=== PATIENT | female | born 1955 | race Caucasian/White ===

== ENCOUNTER → 2022-09-04 09:48 | Outpatient (BNVA) | payer MEDICARE, BC, SELFPAY | PROVIDERS: PCP Internal Medicine; Visit Provider Nurse Practitioner Family | DX: G43.909 Migraine, unspecified, not intractable, without status migrainosus (principal); G43.109 Migraine with aura, not intractable, without status migrainosus; R51.9 Headache, unspecified | CPT/HCPCS: 99202 ==

== ENCOUNTER 2022-10-22 08:59 | Outpatient (REF) | payer MEDICARE, BC, SELFPAY ==
--- NOTE | ~2022-10-22 | MR_ITS ---
EXAMINATION: MR BRAIN WITHOUT AND WITH CONTRAST CLINICAL INFORMATION: Migraine. New headache. Visual aura. COMPARISON: None available. TECHNIQUE: Multiplanar, multisequence MRI of the brain was obtained using a skull base protocol without and following the administration of 10 mL of Gadavist intravenous contrast. FINDINGS: No focal restricted diffusion is demonstrated to suggest acute or subacute cerebral ischemia. No evidence of acute or chronic hemorrhagic products on heme-sensitive imaging. Scattered periventricular and deep white matter T2 FLAIR hyperintensities consistent with mild underlying microangiopathy. The ventricles are normal in morphology and size. No abnormal mass effect. No midline shift. Normal appearance of the pituitary gland. Normal positioning of the cerebellar tonsils. No mass of the cerebellopontine angles. Normal appearance of the cranial nerve V, VII, and VIII nerve roots. No edema or vascular loops near the nerve root entry sites. Normal appearance of the internal auditory canals without enhancing mass lesions. No abnormal enhancement along the course of the facial nerves bilaterally. Normal appearance of the labyrinthine structures without loss of T2 signal or abnormal enhancement. Normal arterial and venous vascular flow voids are present. No abnormal intracranial contrast enhancement. Normal, homogeneous marrow signal. Mild mucosal thickening of the paranasal sinuses. No signal abnormalities within the mastoids. No demonstrated abnormalities of the orbits on limited evaluation. MR/MR head/brain wo/w con IMPRESSION: 1. No acute intracranial abnormalities. No abnormal intracranial enhancement. 2. Mild underlying microangiopathy. 3. No additional MRI abnormalities to explain the patient's symptoms.
== END 2022-10-22 09:00 | disposition home or self-care (01) ==
LOC: HO.MRI 08:59
PROVIDERS: PCP Internal Medicine; Visit Provider Nurse Practitioner Family
DX: G43.109 Migraine with aura, not intractable, without status migrainosus (principal)
CPT/HCPCS: 70553; A9585

== ENCOUNTER 2022-12-19 10:19 | Outpatient (AMB) | payer MEDICARE, BC, SELFPAY ==
--- NOTE | 2022-12-19 10:29 | A.OFFVIS_ITS ---
Intake Vital Signs 12/19/22 10:50 Height 5 ft 5 in Weight 227 lb BMI 37.8 BP 144/88 H Blood Pressure Location Rt brachial Position Sitting Pulse 67 Pulse Source Pulse Oximeter Pulse Oximetry (%) 99 Oxygen Delivery Method Room Air Intake Visit Reasons: 3m follow up Headaches - Confirmed Intake Note: Patient presents for 3 month follow up headaches. Patient states I had an MRI done, I'm here for the results. Allergies animal dander Allergy (Unknown, Verified 12/19/22 10:52) Unknown Medication List - Last Reconciled 12/19/22 by IMANI Mcallister amitriptyline 20 mg (2 x 10 mg) PO BEDTIME 30 days amoxicillin 1,000 mg PO BID atorvastatin 10 mg PO DAILY iruvwcuqb-cwplewlh-yvs-hyalur 40-10-5-3.3 mg (Sandman D&R) tabs PO cetirizine (Aller-Fred) 10 mg PO DAILY PRN CPAP As directed diltiazem HCl ER (DILT-XR) 240 mg PO DAILY levothyroxine 0 mcg PO lisinopril 10 mg PO DAILY lorazepam 1 mg PO ONCE PRN magnesium oxide 400 mg PO BEDTIME 30 days omega-3 fatty acids (Fish Oil) PO DAILY omeprazole 20 mg PO DAILY riboflavin (vitamin B2) 400 mg PO DAILY 30 days [vit E, D3 PO DAILY] HPI HPI Comments History of Present Illness Details 67-yr-old female presents for f/u visit. 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 She is being followed by oral surgeon. Since he last visit, pt reached out to us as her headaches were not improved on Mag and B2. We started pt ion Amitriptyline 10mg qhs- which she is tolerating well, but has not seen much benefit from yet. She does have some dry mouthy which she attributes to her CPAP use. She continues to have a near constant headache. 10/22/22, MR/MR head/brain wo/w con IMPRESSION: 1. No acute intracranial abnormalities. No abnormal intracranial enhancement. 2. Mild underlying microangiopathy. 3. No additional MRI abnormalities to e xplain the patient's symptoms. [facility] Medical History (Updated 09/15/22 @ 19:16 by IMANI Mcallister) Hearing loss GERD (gastroesophageal reflux disease) Hypothyroidism Arthritis HLD (hyperlipidemia) HTN (hypertension) Surgical History History of knee replacement Hx of tubal ligation H/O foot surgery H/O arthroscopic knee surgery Family History Father Parkinsons disease Mother Hypertension Social History Alcohol intake: current Alcohol intake frequency: holidays/special occasions only Patient Tobacco Use Status: Never used Tobacco Review of Systems Const All systems reviewed & are unremarkable except as noted in HPI and below Physical Exam Vital Signs: Last Vital Signs Pulse 67 12/19/22 10:50 BP 144/88 H 12/19/22 10:50 Pulse Ox 99 12/19/22 10:50 Oxygen Delivery Method Room Air 12/19/22 10:50 BMI result Body Mass Index 37.8 Const General: cooperative and no acute distress Orientation/consciousness: patient oriented x3 HEENT Head: Yes normocephalic Resp Effort & Inspection: normal respiratory effort and able to speak in complete sentences Neuro General: patient oriented x3, gait normal and CN's II-XI intact bilaterally (w/ exception of AKIAK) Cognition (Neuro): normal cognition Motor exam (neuro): 5/5 motor strength present throughout Psych Appearance: grossly normal Mental Status: mental status grossly normal Speech and movement: Normal speech and movement present Affect: normal affect Attitude: cooperative Thought process: Normal thought process present Thought content: Normal thought content present Insight: Good insight present (Psych) Judgement: Good judgement present (Psych) Assessment & Plan Assessment & Plan (1) Migraine: Code(s): G43.909 - Migraine, unspecified, not intractable, without status migrainosus (2) Migraine with visual aura: Code(s): G43.109 - Migraine with aura, not intractable, without status migrainosus Plan Reviewed brain MRI w/wo- mild microangiopathy, no findings to explain pt's headache/visual s/s. For acute headache treatment: Naproxen prn. Previous acute migraine medication trials: Tylenol and Keiko Migraine- ineffective. Acute migraine medication contraindications: None at this time. ? For headache prevention medication: Continue Riboflavin 400mg qam Continue Magnesium 400mg qhs Increase Amitriptyline form 10-20mg qhs. If ineffective or not tolerated, consider trying Propranolol, as this would need to be tried prior to being able to try a CGRP MaB. Previous migraine prevention medication trials: None Migraine prevention medication contraindications: None at this time ? Pt to follow-up in 4 months or sooner prn. Medications: Changed From amitriptyline 10 mg PO BEDTIME 30 days 30 tabs 3RF To amitriptyline 20 mg (2 x 10 mg) PO BEDTIME 30 days 60 tabs 3RF Coding Level of Care Code Est Pt Level 4 (79593) Diagnoses Migraine G43.909 Migraine with visual aura G43.109
[2022-12-19 10:50] VITALS: BP 144/88; PULSE 67; O2SAT 99; BMI 37.8
== END 2022-12-19 11:34 | disposition home or self-care (01) ==
PROVIDERS: Visit Provider Nurse Practitioner Family
DX: G43.909 Migraine, unspecified, not intractable, without status migrainosus (principal); G43.109 Migraine with aura, not intractable, without status migrainosus
CPT/HCPCS: 99214

== ENCOUNTER → 2022-12-19 10:19 | Outpatient (BNVA) | payer MEDICARE, BC, SELFPAY | PROVIDERS: Visit Provider Nurse Practitioner Family | DX: G43.109 Migraine with aura, not intractable, without status migrainosus (principal); G43.909 Migraine, unspecified, not intractable, without status migrainosus | CPT/HCPCS: 99212 ==